=== PATIENT | female | born 1965 | race Caucasian/White ===

== ENCOUNTER 2017-04-25 10:22 | Day surgery (SDC) | payer BC, OTHER ==
[~2017-04-25] VITALS: Ht 193 cm; Wt 141.0 kg
[~2017-04-25 10:22] MED LIST: ADULT LOW DOSE81 M1 PO; AMITRIPTYLINE H10 MG PO; ASCORBIC ACID500 M3 PO; ASPIRIN81 M2 PO; AZOR 10/40 M1 TABLET PO; CIPRO500 MG PO; COQ1050 MG PO; COZAAR100 MG PO; DILAUDID4 MG PO; ENDOCET 7.5-321 EACH PO; ESTRACE1 MG PO; ESTRADIOL1 MG PO; FISH OIL CONC1 EACH PO; FLAGYL250 MG PO; FLONASE16 G1 BOTH NARES; GLUCOPHAGE1000 MG PO; GLUCOPHAGE500 MG PO; INVOKANA100 MG PO; INVOKANA300 MG PO; JANUVIA100 MG PO; Januvia PO; LANTUS 3 M100 UNITS1 SC; LEVAQUIN750 MG PO; LOPID600 MG PO; MULTI VITAMIN1 EACH PO; MULTIVITAMIN1 EAC2 PO; Macrobid PO; Motrin PO; NEURONTIN600 MG PO; NORVASC10 MG PO; NOVOLOG PE100 UNITS/ SC; NOVOLOG100 UNIT/1 SC; PERCOCET 5/31 TABLET PO; PRAVACHOL40 MG PO; PREMARIN0.625 MG PO; PREVACID15 MG PO; PRILOSEC20 MG PO; PROAIR RESPICL90 MCG IH; TRAMADOL HCL E200 M1 PO; VICTOZA 2-0.6 MG/0.1 SC; VITAMIN B-122500 MCG SL; ZESTRIL20 MG PO
[2017-04-25 11:09] LABS: POINT-OF-CARE METER ID UU13113694; POINT-OF-CARE USER ID AHSRSCSLC11
== END 2017-04-25 12:12 | disposition home or self-care (01) ==
LOC: PAIN 10:22 → SDC 11:00 → PAIN 11:00
PROVIDERS: Anesthesiology Pain Medicine
DX: M47.816 Spondylosis without myelopathy or radiculopathy, lumbar region (principal); R26.9 Unspecified abnormalities of gait and mobility; F41.9 Anxiety disorder, unspecified; E11.9 Type 2 diabetes mellitus without complications; I10 Essential (primary) hypertension; E78.5 Hyperlipidemia, unspecified; Z89.512 Acquired absence of left leg below knee; Z79.891 Long term (current) use of opiate analgesic; Z87.898 Personal history of other specified conditions; F17.200 Nicotine dependence, unspecified, uncomplicated; E66.9 Obesity, unspecified; Z68.41 Body mass index [BMI] 40.0-44.9, adult; Z79.82 Long term (current) use of aspirin; Z79.01 Long term (current) use of anticoagulants; Z79.4 Long term (current) use of insulin; Z88.1 Allergy status to other antibiotic agents; Z88.2 Allergy status to sulfonamides; Z88.8 Allergy status to other drugs, medicaments and biological substances
CPT/HCPCS: 82948; J1030; J2250; J3010; S0020

== ENCOUNTER 2017-05-16 13:29 | Day surgery (SDC) | payer BC, OTHER ==
[~2017-05-16] VITALS: Ht 193 cm; Wt 145.2 kg
[~2017-05-16 13:29] MED LIST changes: -ASPIRIN81 M2 PO; +CLARITIN,ALAVAR10 MG PO; +CO Q-1050 MG PO; -COQ1050 MG PO; +LO-DOSE ASPIRIN81 M1 PO; +PROAIR HFA8.5 GM IH; -PROAIR RESPICL90 MCG IH
[2017-05-16 14:02] LABS: POINT-OF-CARE METER ID UU14174212
== END 2017-05-16 15:50 | disposition home or self-care (01) ==
LOC: PAIN 13:29
PROVIDERS: Anesthesiology Pain Medicine
DX: M47.26 Other spondylosis with radiculopathy, lumbar region (principal); M54.5 Low back pain; E11.40 Type 2 diabetes mellitus with diabetic neuropathy, unspecified; E78.5 Hyperlipidemia, unspecified; I10 Essential (primary) hypertension; E66.01 Morbid (severe) obesity due to excess calories; Z68.38 Body mass index [BMI] 38.0-38.9, adult; F41.9 Anxiety disorder, unspecified; Z79.4 Long term (current) use of insulin; Z79.82 Long term (current) use of aspirin; Z79.891 Long term (current) use of opiate analgesic; F17.210 Nicotine dependence, cigarettes, uncomplicated; Z89.512 Acquired absence of left leg below knee
CPT/HCPCS: 82948; J1030; J2250; J3010; S0020